=== PATIENT | female | born 1955 | race Caucasian/White ===

== ENCOUNTER → 2017-03-26 | Outpatient (CLI) | payer MEDICARE ==
[~2017-03-26] MED LIST: ALPR1TAB2 PO; LEVO112T4 PO; MORP15TA PO; OMNIPAQUE 350 MG/ML, 100ML BOTTLE ONE; OXYC15TA PO; PROP80CA12 PO
== END | disposition home or self-care (01) ==
LOC: RAD 12:37
PROVIDERS: ATTEND Nurse Practitioner Family
DX: R14.0 Abdominal distension (gaseous) (principal)
CPT/HCPCS: 74177; Q9967

== ENCOUNTER 2017-06-07 23:11 | Emergency (ER) | payer MEDICARE ==
[~2017-06-07] VITALS: Ht 160 cm; Wt 65.0 kg
[~2017-06-07 23:11] MED LIST changes: -OMNIPAQUE 350 MG/ML, 100ML BOTTLE ONE
[2017-06-08 00:06] LABS: ASPARTATE AMINO TRANSFERASE 60 U/L (15-37); BLOOD UREA NITROGEN 15 mg/dL (7-18)
[2017-06-08] MEDS ORDERED: SODIUM CHLORIDE FLUSH 10ML SYR IVF ONE (00:30)
[2017-06-08] MEDS ORDERED: OMNIPAQUE 350 MG/ML, 100ML BOTTLE ONE (01:11)
[2017-06-08 03:00] VITALS: BP 117/68
== END 2017-06-08 03:02 | disposition home or self-care (01) ==
LOC: ED 23:59
DX: R10.33 Periumbilical pain (principal); R19.7 Diarrhea, unspecified; Z90.710 Acquired absence of both cervix and uterus; F17.200 Nicotine dependence, unspecified, uncomplicated
CPT/HCPCS: 36415; 74020; 74177; 80053; 81003; 83690; 85025; 99285; Q9967

== ENCOUNTER 2017-11-24 13:41 | Emergency (ER) | payer MEDICARE ==
[~2017-11-24] VITALS: Ht 160 cm; Wt 50.1 kg
[2017-11-24] MEDS ORDERED: FLUORESCEIN OPHTHALMIC 1 MG STRIP ONE (14:29)
[2017-11-24] MEDS ORDERED: PROPARACAINE OPHTH 0.5%, 15ML ONE (14:29)
[2017-11-24 15:22] VITALS: BP 124/71
== END 2017-11-24 15:25 | disposition home or self-care (01) ==
LOC: ED 14:45
DX: H10.9 Unspecified conjunctivitis (principal); F17.200 Nicotine dependence, unspecified, uncomplicated
CPT/HCPCS: 99283

== ENCOUNTER 2020-07-24 08:02 | Emergency (ER) | payer MEDICARE ==
[~2020-07-24] VITALS: Ht 160 cm; Wt 49.3 kg
[~2020-07-24 08:02] MED LIST changes: -OXYC15TA PO; +OXYC15TA3 PO; -PROP80CA12 PO; +PROP80CA47 PO
[2020-07-24] MEDS ORDERED: MORPHINE SULFATE 4 MG/ML, 1ML IVPush PRN (08:30)
[2020-07-24] MEDS ORDERED: MORPHINE SULFATE 4 MG/ML, 1ML ONE (08:41)
[2020-07-24 08:45] LABS: MICROSCOPIC INDICATED
[2020-07-24 08:52] LABS: BASOPHILS # (AUTO) 0.11 x10^3/uL (0-0.1); BASOPHILS % (AUTO) 1 % (0-1); EOSINOPHILS # (AUTO) 0.15 x10^3/uL (0-0.4); EOSINOPHILS % (AUTO) 2 % (1-7); LYMPHOCYTES # (AUTO) 2.96 x10^3/uL (1-3.4); LYMPHOCYTES % (AUTO) 32 % (22-44); MD NO; MEAN CORPUSCULAR HEMOGLOBIN 31.5 pg (27.0-34.8); MEAN CORPUSCULAR VOLUME 95.5 fL (80-100); MONOCYTES # (AUTO) 0.73 x10^3/uL (0.2-0.8); MONOCYTES % (AUTO) 8 % (2-9); NEUTROPHILS # (AUTO) 5.37 x10^3/uL (1.8-6.8); NEUTROPHILS % (AUTO) 58 % (42-75); PLATELET COUNT 431 x10^3/uL (130-400); RED BLOOD COUNT 4.96 x10^6/uL (3.82-5.3); RED CELL DISTRIBUTION WIDTH 12.4 % (9.6-15.2)
[2020-07-24] MEDS ORDERED: SODIUM CHLORIDE 0.9% 1,000ML IVBOLUS ONE (09:00)
[2020-07-24 09:02] LABS: ALBUMIN 3.5 g/dL (3.4-5.0); ANION GAP 3 mmol/L (5-15); CALCIUM 9.2 mg/dL (8.5-10.1); CHLORIDE 108 mmol/L (98-107)
--- NOTE | 2020-07-24 09:02 | NUR ---
PT SITTING ON GURNEY AWAKE AND MORE COMFORTABLE AFTER PAIN MEDICATION. COMFORT MEASURES PROVIDED, CALL LIGHT WITHIN REACH.
[2020-07-24 09:05] LABS: ALANINE AMINOTRANSFERASE 16 U/L (12-78); ALKALINE PHOSPHATASE 100 U/L (45-117); BILIRUBIN,TOTAL 0.4 mg/dL (0.2-1.0); CREATININE 1.02 mg/dL (0.55-1.02); TOTAL PROTEIN 7.1 g/dL (6.4-8.2)
[2020-07-24] MEDS ORDERED: SODIUM CHLORIDE FLUSH 10ML SYR IVF ONE (09:30)
[2020-07-24] MEDS ORDERED: OMNIPAQUE 350 MG/ML, 100ML BOTTLE ONE (09:37)
[2020-07-24 09:46] LABS: CLOSTRIDIUM DIFFICILE TOXIN NEGATIVE (Negative)
[2020-07-24 09:51] LABS: CLOSTRIDIUM DIFFICILE ANTIGEN POSITIVE
--- NOTE | 2020-07-24 10:02 | NUR ---
PT SITTING IN BED COMFORTABLY AFTER BATHROOM USE. NO NEEDS AT THIS TIME. COMFORT MEASURES ADDRESSED AND CALL LIGHT WITHIN REACH.
[2020-07-24 10:41] VITALS: BP 139/78
[2020-07-24 11:07] LABS: CRYPTOSPORIDIUM ANTIGEN Negative (Negative)
--- NOTE | 2020-07-24 11:24 | NUR ---
Patient given discharge instructions AND RX and they have confirmed that they understand the instructions. Patient ambulatory with steady gait.
== END 2020-07-24 11:25 | disposition home or self-care (01) ==
LOC: ED 08:55
DX: A09 Infectious gastroenteritis and colitis, unspecified (principal)
CPT/HCPCS: 36415; 74177; 80053; 81001; 83690; 85025; 87046; 87086; 87252; 87324; 87328; 87329; 87427; 87493; 89055; 96361; 96374; 99285; J2270; J7030; Q9967

== ENCOUNTER 2020-09-06 13:28 | Emergency (ER) | payer MEDICARE ==
[~2020-09-06] VITALS: Ht 160 cm; Wt 50.9 kg
[2020-09-06] MEDS ORDERED: SODIUM CHLORIDE 0.9% 1,000ML IVBOLUS ONE (14:00)
[2020-09-06 14:01] LABS: BASOPHILS % (AUTO) 1 % (0-1); EOSINOPHILS % (AUTO) 1 % (1-7); LYMPHOCYTES % (AUTO) 28 % (22-44); MEAN CORPUSCULAR HEMOGLOBIN 31.8 pg (27.0-34.8); MEAN CORPUSCULAR HGB CONC 33.5 g/dL (32.4-35.8); MEAN PLATELET VOLUME 8.1 fL (7.4-10.4); MONOCYTES % (AUTO) 9 % (2-9); NEUTROPHILS % (AUTO) 62 % (42-75); PLATELET COUNT 347 x10^3/uL (130-400); RED BLOOD COUNT 4.99 x10^6/uL (3.82-5.3); RED CELL DISTRIBUTION WIDTH 13.6 % (9.6-15.2)
[2020-09-06 14:03] LABS: MD NO
[2020-09-06 14:11] LABS: ALANINE AMINOTRANSFERASE 24 U/L (12-78); ALBUMIN 3.7 g/dL (3.4-5.0); ANION GAP 5 mmol/L (5-15); CALCIUM 9.5 mg/dL (8.5-10.1); CHLORIDE 105 mmol/L (98-107); CREATININE 1.24 mg/dL (0.55-1.02)
[2020-09-06 14:13] LABS: ALKALINE PHOSPHATASE 99 U/L (45-117); BILIRUBIN,TOTAL 0.7 mg/dL (0.2-1.0); TOTAL PROTEIN 7.3 g/dL (6.4-8.2)
[2020-09-06 15:22] LABS: CLOSTRIDIUM DIFFICILE ANTIGEN POSITIVE; CLOSTRIDIUM DIFFICILE TOXIN POSITIVE (Negative)
--- NOTE | 2020-09-06 15:29 | NUR ---
TO ROOM FROM LOBBY. NAD.
--- NOTE | 2020-09-06 15:39 | NUR ---
THIS IS A 65 YO FEMALE COMING IN FOR "I WAS HERE June WITH C.DIFF AND IT HASN'T GOTTEN BETTER." PT C/O ABD PAIN AND BLOATING SINCE JUNE. WAS SEEN HERE AND DISCHARGED WITH PO VANCOMYCIN FOR 10 DAYS. PATIENT STILL + FOR CDIFF ANTIGEN. ABD BLOATED AND TENDER TO PALPATION, DENIES BLOOD IN STOOL. VSS, NADN AT THIS TIME. AMBULATORY WITH STEADY GAIT TO RESTROOM FOR UA.
--- NOTE | 2020-09-06 15:47 | NUR ---
UA WALKED TO LAB
[2020-09-06 15:54] LABS: MICROSCOPIC NOT IND
[2020-09-06 16:17] VITALS: BP 142/98
--- NOTE | 2020-09-06 16:49 | NUR ---
Patient given discharge instructions and they have confirmed that they understand the instructions. Patient ambulatory with steady gait.
== END 2020-09-06 16:51 | disposition home or self-care (01) ==
LOC: ED 15:49
DX: A04.72 Enterocolitis due to Clostridium difficile, not specified as recurrent (principal); R19.7 Diarrhea, unspecified; R10.84 Generalized abdominal pain; F17.200 Nicotine dependence, unspecified, uncomplicated
CPT/HCPCS: 36415; 80053; 81003; 85025; 87324; 89055; 93005; 96360; 96361; 99284; J7030